=== PATIENT | female | born 1970 | race Hispanic/Latino ===

== ENCOUNTER 2022-08-08 18:36 | Emergency (ER) | payer SELFPAY ==
[2022-08-08] MEDS ORDERED: Cyclobenzaprine 10 MG TAB ONE (20:29)
[2022-08-08] MEDS ORDERED: Ketorolac Tromethamine 30 MG/ML VIAL ONE (20:29)
== END 2022-08-08 22:24 | disposition home or self-care (01) ==
LOC: CSHERS 18:36
DX: M25.512 Pain in left shoulder (principal); M54.2 Cervicalgia; M25.522 Pain in left elbow; M25.532 Pain in left wrist
CPT/HCPCS: 72040; 96372; J1885